=== PATIENT | male | born 1985 | race Caucasian/White ===

== ENCOUNTER 2020-07-23 18:41 | Emergency (ER) | payer OTHER ==
[2020-07-23] MEDS ORDERED: Cyclobenzaprine 10 MG Tab PO ONE (19:24)
--- NOTE | 2020-07-23 19:56 | EDM.PDOC ---
ED HPI GENERAL MEDICAL PROBLEM - General Chief Complaint: Back Pain or Injury Stated Complaint: NECK/BACK PAIN Time Seen by Provider: 07/23/20 19:06 Source of Information: Reports: Patient - History of Present Illness INITIAL COMMENTS - FREE TEXT/NARRATIVE: 34 yo male present to ER after falling earlier this afternoon. He is working for the [employer] and was walking down a ramp his foot broke through causing him to fall backwards. he did not hit his head no LOC, he continues to have painin his upper back and neck. denies numbness or tingling in his extremities. denies headache. he does feel " a little shaky" Upper Back Pain Score (Numeric/FACES): 6 - Related Data Allergies Allergy/AdvReac Type Severity Reaction Status Date / Time azithromycin Allergy Cannot Verified 07/23/20 19:13 Remember Home Meds: Home Meds NK [No Known Home Meds] 07/23/20 [History] Past Medical History Musculoskeletal History: Reports: Fracture Other Musculoskeletal History: fx tibia fib, fx wrist - Past Surgical History HEENT Surgical History: Reports: Adenoidectomy, Tonsillectomy Musculoskeletal Surgical History: Reports: Arthroscopic Procedure Social & Family History - Tobacco Use Smoking Status *Q: Never Smoker - Caffeine Use Caffeine Use: Reports: Coffee - Alcohol Use Days Per Week of Alcohol Use: 2 Number of Drinks Per Day: 2 Total Drinks Per Week: 4 - Recreational Drug Use Recreational Drug Use: No ED ROS GENERAL - Review of Systems Review Of Systems: See Below Constitutional: Denies: Fever, Chills Respiratory: Denies: Shortness of Breath, Wheezing Cardiovascular: Denies: Chest Pain Musculoskeletal: Reports: Neck Pain, Muscle Pain, Muscle Stiffness ED EXAM,LOWER BACK PAIN/INJURY - Physical Exam Exam: See Below Exam Limited By: No Limitations General Appearance: Alert, WD/WN, No Apparent Distress Neck: Other (paramuscle tenderness). No: Lymphadenopathy (R), Lymphadenopathy (L) Respiratory/Chest: No Respiratory Distress, Lungs Clear, Normal Breath Sounds, Chest Non-Tender. No: Crackles, Rhonchi, Wheezing GI/Abdominal: Soft, Non-Tender Back Exam: Normal Inspection, Full Range of Motion, Muscle Spasm, Paraspinal Tenderness Course - Vital Signs Last Recorded V/S: Last Vital Signs Temp 36.4 C 07/23/20 19:08 Pulse 73 07/23/20 19:08 Resp 16 07/23/20 19:08 BP 144/97 H 07/23/20 19:08 Pulse Ox 96 07/23/20 19:08 - Orders/Labs/Meds Orders: Active Orders 24 hr Category Date Time Status Cervical Spine 2V or 3V [CR] Stat Exams 07/23/20 19:23 Ordered Thoracic Spine 2V [CR] Stat Exams 07/23/20 19:24 Ordered Meds: Medications Discontinued Medications Generic Name Dose Route Start Last Admin Trade Name Bobby PRN Reason Stop Dose Admin Cyclobenzaprine HCl 10 mg 07/23/20 19:24 07/23/20 19:30 Flexeril PO 07/23/20 19:25 10 mg ONETIME ONE Administration Departure - Departure Time of Disposition: 20:01 Disposition: Home, Self-Care 01 Clinical Impression: Cervicalgia Back pain Qualifiers: Back pain location: thoracic back pain Chronicity: acute Back pain laterality: bilateral Qualified Code(s): M54.6 - Pain in thoracic spine - Discharge Information *PRESCRIPTION DRUG MONITORING PROGRAM REVIEWED*: Not Applicable *COPY OF PRESCRIPTION DRUG MONITORING REPORT IN PATIENT OLENA: Not Applicable Instructions: Acute Back Pain, Adult Referrals: PCP,None [Primary Care Provider] - Forms: ED Department Discharge Additional Instructions: Ibuprofen 400-600 every 6 hours as needed - tomorrow take scheduled twice and other doses as needed stretching - let pain be your guide ice as needed for pain control Sepsis Event Note (ED) - Evaluation Sepsis Screening Result: No Definite Risk - Focused Exam Vital Signs: Vital Signs Temp Pulse Resp BP Pulse Ox 07/23/20 19:08 36.4 C 73 16 144/97 H 96 07/23/20 19:04 36.4 C 73 16 144/97 H 96 - My Orders Last 24 Hours: My Active Orders 07/23/20 19:23 Cervical Spine 2V or 3V [CR] Stat 07/23/20 19:24 Thoracic Spine 2V [CR] Stat - Assessment/Plan Last 24 Hours: My Active Orders 07/23/20 19:23 Cervical Spine 2V or 3V [CR] Stat 07/23/20 19:24 Thoracic Spine 2V [CR] Stat
--- NOTE | 2020-07-24 09:28 | CR ---
Thoracic Spine 2V, Cervical Spine 2V or 3V CLINICAL HISTORY: Fall FINDINGS: Study is limited. The lateral view is underexposed. The the upper thoracic and lower thoracic vertebrae are not well seen. No obvious compression is identified on the AP image. The vertebral bodies appear normal in height. There is no significant osteophytosis. The pedicles are unremarkable. Impression: Limited study due to underexposure No definite fracture or subluxation. If clinical symptomatology persists or worsens repeat the thoracic spine series should be considered Thoracic Spine 2V, Cervical Spine 2V or 3V CLINICAL HISTORY: Fall FINDINGS: The vertebral body heights are intact. The disc spaces are mildly narrowed at C4-5 and C5-6. There is mild accompanying spondylosis. Alignment is maintained. IMPRESSION: No fracture or subluxation
== END 2020-07-23 20:07 | disposition home or self-care (01) ==
LOC: JP.ED 18:41
DX: M54.2 Cervicalgia (principal); M62.830 Muscle spasm of back; Z88.1 Allergy status to other antibiotic agents
CPT/HCPCS: 72040; 72070; 99283; A9270